=== PATIENT | female | born 1980 | race Asian ===

== ENCOUNTER 2024-05-27 15:17 | Emergency (ER) | payer OTHER ==
[~2024-05-27] VITALS: Ht 144.8 cm; Wt 59.0 kg
[2024-05-27 15:22] VITALS: O2SAT 98
[2024-05-27] MEDS: LORAZEPAM 1MG TABLET PO ONE (16:42)
[2024-05-27] MEDS ORDERED: LORA-250 MT (17:20)
[2024-05-27 17:31] VITALS: BP 191/117; PULSE 84; RESP 16; TEMP 36.72516; O2SAT 98
== END 2024-05-27 19:57 | disposition home or self-care (01) ==
LOC: ER 15:17
DX: F41.9 Anxiety disorder, unspecified (principal); I10 Essential (primary) hypertension
CPT/HCPCS: 81025; 93005; 99284